=== PATIENT | female | born 1945 ===

== ENCOUNTER 2024-04-29 07:35 | Inpatient (IN) | payer MEDICARE, SELFPAY ==
[2024-04-29] VITALS (14 sets, daily range): BP systolic 87–127; BP diastolic 29–78; PULSE 70–93; RESP 14–38; TEMP 34.5–36.1; O2SAT 95–100; BMI 23.7
--- NOTE | ~2024-04-29 | XR_ITS ---
EXAMINATION: XR CHEST CLINICAL INFORMATION: Hypoxia COMPARISON: None available. TECHNIQUE: Frontal view of the chest was obtained. FINDINGS: Abnormal portable study with hypoventilation and infiltrates or atelectasis at the lung bases. Bandlike atelectasis seen in the right mid to upper lung as well. There is moderate cardiomegaly with mild distention of the pulmonary vessels. There is degenerative change of both shoulders. There are surgical clips in the upper abdomen. XR/XR chest 1V IMPRESSION: Bibasilar infiltrates and/or effusions with apparent congestive changes. A follow-up PA and lateral would be helpful since some of this appearance may be based on technique and hypoventilation. Electronically signed by: Michael Rowan MD 04/29/2024 09:23 AM EDT
--- NOTE | ~2024-04-29 | CT_ITS ---
EXAMINATION: CT HEAD WITHOUT CONTRAST CLINICAL INFORMATION: Changes in mental status and known COMPARISON: None available. TECHNIQUE: Contiguous axial imaging was performed from the skull base to vertex without intravenous administration of contrast. This CT examination was performed using dose optimization techniques as appropriate, variously including the following: *Automated exposure control *Adjustment of mA and/or kV according to patient size (this includes techniques or standardized protocols for targeted exams where dose is matched to indication/reason for exam; i.e. extremities or head) *Use of iterative reconstruction technique DLP: 657 mGy-cm FINDINGS: Moderate calvarial thickening noted but no destructive lesion or fracture. There is mild prominence to the sulci and ventricles with white matter gliosis and involutional change. No evidence for intra or extra-axial fluid collection, hemorrhage, mass, or mass effect. Areas of gliosis also observed in the brainstem. CT/CT head/brain wo IV con IMPRESSION: Chronic findings of involution are observed.No acute findings. Electronically signed by: Michael Rowan MD 04/29/2024 09:16 AM EDT
--- NOTE | 2024-04-29 07:45 | ECG_ITS ---
Test Reason : DYSPNEA Blood Pressure : / mmHG Vent. Rate : 083 BPM Atrial Rate : 083 BPM P-R Int : 150 ms QRS Dur : 084 ms QT Int : 372 ms P-R-T Axes : 031 -27 138 degrees QTc Int : 437 ms Normal sinus rhythm Septal infarct , age undetermined T wave abnormality, consider lateral ischemia Abnormal ECG No previous ECGs available Referred By: Dulce Colvin Electronically Signed By:RHYS CORONADO
--- NOTE | 2024-04-29 07:48 | ED.SOB ---
HPI - SOB/Dyspnea General Chief Complaint: General Medical Stated Complaint: SOB 99% ON 4LPM,FROM [facility] PER EMS Time Seen by Provider: 04/29/24 07:36 Source: patient and EMS Mode of arrival: EMS Limitations: altered mental status History of Present Illness ED Provider: PARVIZ HPI Narrative: 79 yo female from [facility] with PMH of HTN, GERD, DM2, severe dementia, UTI, kidney failure here with c/o being found more altered from baseline - not verbal and not speaking. She was hypoxic with sats in the mid 80s. Responded to 4L NC with EMS. She can only tell me she is not in pain. On CXR reportedly yesterday had bilateral effusions. Patient on arrival wakes to voice and can squeeze hands but overall is edematous and frail appearing. NO fevers reported. I do not see any diuretics on her med list. Patient's MOLST states FULL CODE. MD elicited complaint: shortness of breath Onset (ago): unknown Context: other Timing: constant Severity: moderate Exacerbating factors: lying flat Relieving factors: oxygen Known history of: diabetes Associated symptoms: other (swelling in legs) Treatment prior to arrival: oxygen Related Data Home Medications ?Medication ?Instructions ?Recorded ?Confirmed acetaminophen 325 mg tablet 650 mg PO Q6H PRN Fever Or Pain 04/29/24 04/29/24 bisacodyl 10 mg rectal suppository 10 mg IL DAILY PRN Constipation 04/29/24 04/29/24 buspirone 15 mg tablet 15 mg PO TID 04/29/24 04/29/24 donepezil 5 mg tablet 5 mg PO DAILY@199904/29/24 04/29/24 fesoterodine 8 mg tablet,extended 8 mg PO BEDTIME@199904/29/24 04/29/24 release 24 hr glucagon 1 mg solution for 1 mg subcut Q20M PRN Constipation 04/29/24 04/29/24 injection (Glucagon Emergency Kit) magnesium hydroxide 400 mg/5 mL 30 ml PO DAILY PRN Constipation 04/29/24 04/29/24 oral suspension (Milk of Magnesia) magnesium oxide 400 mg PO BID 04/29/24 04/29/24 montelukast 10 mg tablet 10 mg PO DAILY@199904/29/24 04/29/24 pantoprazole 40 mg tablet,delayed 40 mg PO BID@0630,1630 04/29/24 04/29/24 release sodium phosphates 19 gram-7 118 ml IL DAILY PRN Constipation 04/29/24 04/29/24 gram/118 mL enema (Fleet Enema) sucralfate 1 gram tablet 1 g PO BID 04/29/24 04/29/24 Allergies Allergy/AdvReac Type Severity Reaction Status Date / Time Penicillins Allergy Unknown Unknown Verified 04/29/24 08:09 Review of Systems Review of Systems: ROS unable to be obtained due to altered mental status [facility] Past Medical History Attestation statement: The following information was validated with the patient. Source: old records reviewed Medical History HTN (hypertension) GERD (gastroesophageal reflux disease) Diabetes Dementia UTI (urinary tract infection) Kidney failure Social History Social History (Updated 04/29/24 @ 07:49 by Dulce Colvin DO) Patient Tobacco Use Status: Tobacco use Unknown Advance Directives: Yes Advance Directives on File: Yes Advance Directives Date on File: 04/29/24 Do you have a plan to hurt others: No Plan Physical Exam Vital Signs: Vital Signs: Last Vital Signs Temp 97 F 04/29/24 14:21 Pulse 93 04/29/24 14:21 Resp 25 H 04/29/24 14:21 BP 123/68 04/29/24 14:21 Pulse Ox 95 04/29/24 14:21 O2 Del Method Nasal Cannula 04/29/24 14:21 O2 Flow Rate 3 04/29/24 14:21 FiO2 100 04/29/24 09:24 Oxygen Flow Rate 4 04/29/24 08:08 BMI result Body Mass Index 23.7 Appearance: Somnolent. Wakes to voice, very weak and frail appearing. Not speaking much other than saying yes or no. moderate acute distress. Eyes: Pupils pinpoint ENT: Pharynx dry MM Neck: Normal inspection. Neck supple. CVS: Normal heart rate and rhythm. Pulses normal. Respiratory: moderate respiratory distress - poor respiratory effort low rate shallow breaths. Breath sounds bases diminished with rales Abdomen: Soft and non-tender. Skin: Skin warm and dry. pale skin color. Normal skin turgor. Extremities: 1-2+ bilateral symmetric lower extremity edema. Neuro: yes or no answers. No motor deficit. No sensory deficit. Course Course Course Narrative: no response to narcan respiratory acidosis - I am not sure she can tolerate Bipap daughter Unique is on the way to come see the patient aware of her respiratory status Reevaluation(s) Reevaluation #1: hypothermia sudha nunez ordered 850am IV albumin and lasix ordered Reevaluation #2: patient's MOLST is confusing was signed on 04/16 at [facility] but she shouuld not have been able to sign it with her dementia states full CODE but no IVF or feeding tube. Daughter is here and undecided going back and forth between ventilator and central line currently on Bipap and tolerating. I did try to start central line but daughter wants to wait and see when her son comes to help her decide 920am added on vancomycin given CXR pressure is coming up and she is perking up and agitated will try to diurese once she is improved Reevaluation #3: VBG improving will trial off of bipap 1113am BP still remains up temp is coming up Additional Reevaluation(s): currently doing well off bipap - repeat labs reassuring will admit daughter has made patient DNR/DNI no pressors okay for NIPPV wants fluids and IV antibiotics Medications Administered Discontinued Medications Generic Name Dose Route Start Last Admin Trade Name Rhonda PRN Reason Stop Dose Admin Ceftriaxone Sodium 1 gm/ 50 mls @ 100 mls/hr 04/29/24 07:50 04/29/24 08:54 Sodium Chloride IV 04/29/24 08:19 Infused ONCE ONE Infusion Albumin Human 100 mls @ 133.333 mls/hr 04/29/24 08:30 04/29/24 10:34 Kedbumin 25 % IV 04/29/24 10:14 Infused Q1H PELON Infusion Sodium Chloride 250 mls @ 250 mls/hr 04/29/24 09:18 04/29/24 11:48 Ns IV 04/29/24 10:17 Infused .Q1H ONE Infusion Vancomycin HCl 1,500 mg/ 500 mls @ 333.333 mls/hr 04/29/24 09:36 04/29/24 12:32 Sodium Chloride IV 04/29/24 11:05 Infused ONCE ONE Infusion Calcium Gluconate 2 gm in 100 mls @ 50 mls/hr 04/29/24 11:24 04/29/24 14:21 Calcium Gluconate IV 04/29/24 13:23 Infused ONCE ONE Infusion Naloxone HCl 0.4 mg 04/29/24 08:04 04/29/24 08:07 Naloxone Hcl 0.4 Mg/Ml Vial IVPUSH 04/29/24 08:05 0.4 mg STAT STA Administration Naloxone HCl 0.4 mg 04/29/24 08:27 04/29/24 08:51 Naloxone Hcl 0.4 Mg/Ml Vial IVPUSH 04/29/24 08:28 0.4 mg ONCE ONE Administration Sodium Zirconium Cyclosilicate 5 gm 04/29/24 11:24 04/29/24 12:30 Sodium Zirconium Cyclosilicate 5 Gm Powd.Pack PO 04/29/24 11:25 Not Given ONCE ONE Medical Decision Making Medical Decision Making MDM Narrative: 79 yo female from [facility] with PMH of HTN, GERD, DM2, severe dementia, UTI, kidney failure here with c/o hypoxia, edema, AMS - at this time it is really hard to get much of a history will obtain basic labs, EKG, BNP, CXR, CT head for ICH she is not on thinners, UA - start on empiric ceftriaxone. She may need IV lasix given the edema I do not see diuretics. She has hx of low Na in past will check all of her lytes. Wide differential of toxic/metabolic/infectious encephalopathy in someone who cannot provide history. Pupils are pinpoint but I do not see opiates on the EMR will give one time dose of narcan. Differential Diagnosis Differential Diagnoses: The differential diagnosis associated with the presentation includes CHF, pneumonia, effusions, encephalopathy, UTI Admission/Observation Consideration of admission/observation: Escalation of care including admission/observation considered admit given hypoxia and lab trend Consult Healthcare Provider Management of the patient was discussed with: Hospitalist (will admit) Lab Data MDM Lab Attestation statement: I reviewed the patient's lab results. 04/29/24 08:03 04/29/24 10:32 Labs: Lab Results 04/29/24 04/29/24 04/29/24 Range/Units 07:50 08:03 08:04 WBC 7.7 (4.8-10.8) X10*3/uL RBC 3.98 L (4.20-5.50) X10*6/uL Hgb 11.7 L (12.0-16.0) g/dl Hct 37.9 (37.0-47.0) % MCV 95.2 (80.0-98.0) fL MCH 29.4 (27.0-33.0) pg MCHC 30.9 L (31.0-35.0) g/dl RDW 17.5 H (11.0-16.0) % Plt Count 463 H (160-400) X10*3/uL MPV 9.9 (9.4-12.3) fL Immature Gran % (Auto) 0.4 (0.0-0.4) % Neut % (Auto) 87.4 H (45-73) % Lymph % (Auto) 8.8 L (20-40) % [place] % (Auto) 3.0 (2-11) % Eos % (Auto) 0.1 (0-4) % Baso % (Auto) 0.3 (0-2) % Lymph # (Auto) 0.7 L (1.2-4.9) X10*3/uL [place] # (Auto) 0.2 (0.1-1.2) X10*3/uL Eos # (Auto) 0.0 (0.0-0.4) X10*3/uL Baso # (Auto) 0.0 (0.0-0.2) X10*3/uL Abs Immat Gran (auto) 0.03 (0.00-0.03) X10*3/uL Absolute Neuts (auto) 6.7 (2.0-8.3) x10*3/uL Absolute Nucleated RBC 0.000 (0.0-0.012) X10*3/uL Nucleated RBC % (auto) 0.0 (0.0-0.2) /100WBC PT 9.8 L (11.1-13.3) SEC INR 0.8 L (0.9-1.1) VBG pH (7.32-7.43) VBG pCO2 mmHg VBG pO2 mmHg VBG HCO3 (22-26) mmol/L VBG O2 Saturation % VBG Base Excess mmol/L Sodium (135-145) mmol/L Potassium (3.3-5.1) mmol/L Chloride (96-108) mmol/L Carbon Dioxide (22-29) mmol/L Anion Gap (12-20) BUN (9-16) mg/dL Creatinine (0.5-1.4) mg/dL Estim Creat Clear Calc Estimated GFR POC Glucose 122 H (60-115) mg/dL Random Glucose (60-115) mg/dL Lactic Acid 2.7 H* (0.5-2.0) mmol/L Lactic Acid F/U @ 2Hr (0.5-2.0) mmol/L Lactic Acid F/U @ 4Hr (0.5-2.0) mmol/L Calcium (8.4-10.2) mg/dL Magnesium (1.6-2.6) mg/dL Total Bilirubin (0.0-1.0) mg/dL Direct Bilirubin (0.0-0.5) mg/dL AST (5-31) U/L ALT (0-31) U/L Alkaline Phosphatase (39-117) U/L Troponin I High Sens 115.3 H* (<3.5-17.0) ng/L C-Reactive Protein (< or = 0.50) mg/dL B-Natriuretic Peptide 2443 H (<100) pg/mL Total Protein (6.5-8.0) g/dL Albumin (3.5-5.0) g/dL Lipase (8-78) U/L TSH (0.32-4.0) uIU/mL Urine Color Urine Appearance Urine pH (5.0-9.0) Ur Specific [place] (1.005-1.025) Urine Protein (Neg-Trace) mg/dL Urine Glucose (UA) (Negative) mg/dL Urine Ketones (Negative) mg/dL Urine Blood (Negative) Urine Nitrite (Negative) Ur Leukocyte Esterase (Negative) Urine RBC (0-2) /HPF Urine WBC (0-5) /HPF Ur Squamous Epith Cells (0-2) /HPF Urine Bacteria (None Seen) Hyaline Casts (0-2) /LPF Urine Yeast Influenza Type A (PCR) (Negative) Influenza Type B (PCR) (Negative) RSV RNA Qual (PCR) (Negative) SARS-CoV-2 RNA (RT-PCR) (Negative) 09/18/24 09/18/24 09/18/24 Range/Units 08:12 08:57 10:32 WBC (4.8-10.8) X10*3/uL RBC (4.20-5.50) X10*6/uL Hgb (12.0-16.0) g/dl Hct (37.0-47.0) % MCV (80.0-98.0) fL MCH (27.0-33.0) pg MCHC (31.0-35.0) g/dl RDW (11.0-16.0) % Plt Count (160-400) X10*3/uL MPV (9.4-12.3) fL Immature Gran % (Auto) (0.0-0.4) % Neut % (Auto) (45-73) % Lymph % (Auto) (20-40) % [place] % (Auto) (2-11) % Eos % (Auto) (0-4) % Baso % (Auto) (0-2) % Lymph # (Auto) (1.2-4.9) X10*3/uL [place] # (Auto) (0.1-1.2) X10*3/uL Eos # (Auto) (0.0-0.4) X10*3/uL Baso # (Auto) (0.0-0.2) X10*3/uL Abs Immat Gran (auto) (0.00-0.03) X10*3/uL Absolute Neuts (auto) (2.0-8.3) x10*3/uL Absolute Nucleated RBC (0.0-0.012) X10*3/uL Nucleated RBC % (auto) (0.0-0.2) /100WBC PT (11.1-13.3) SEC INR (0.9-1.1) VBG pH 7.24 L (7.32-7.43) VBG pCO2 68 mmHg VBG pO2 132 mmHg VBG HCO3 29 H (22-26) mmol/L VBG O2 Saturation 100.0 % VBG Base Excess 0.9 mmol/L Sodium 139 (135-145) mmol/L Potassium 5.7 H (3.3-5.1) mmol/L Chloride 106 (96-108) mmol/L Carbon Dioxide 25 (22-29) mmol/L Anion Gap 14 (12-20) BUN 50 H (9-16) mg/dL Creatinine 3.88 H (0.5-1.4) mg/dL Estim Creat Clear Calc 10.4 Estimated GFR 11 POC Glucose (60-115) mg/dL Random Glucose 114 (60-115) mg/dL Lactic Acid (0.5-2.0) mmol/L Lactic Acid F/U @ 2Hr (0.5-2.0) mmol/L Lactic Acid F/U @ 4Hr (0.5-2.0) mmol/L Calcium 9.9 (8.4-10.2) mg/dL Magnesium 2.6 (1.6-2.6) mg/dL Total Bilirubin 0.2 (0.0-1.0) mg/dL Direct Bilirubin < 0.2 (0.0-0.5) mg/dL AST 23 (5-31) U/L ALT 9 (0-31) U/L Alkaline Phosphatase 44 (39-117) U/L Troponin I High Sens (<3.5-17.0) ng/L C-Reactive Protein < 0.10 (< or = 0.50) mg/dL B-Natriuretic Peptide (<100) pg/mL Total Protein 7.0 (6.5-8.0) g/dL Albumin 3.9 (3.5-5.0) g/dL Lipase 16 (8-78) U/L TSH 1.42 (0.32-4.0) uIU/mL Urine Color Yellow Urine Appearance Turbid Urine pH 5.0 (5.0-9.0) Ur Specific [place] 1.020 (1.005-1.025) Urine Protein 300 (3+) H (Neg-Trace) mg/dL Urine Glucose (UA) Negative (Negative) mg/dL Urine Ketones Trace (Negative) mg/dL Urine Blood Moderate (2+) H (Negative) Urine Nitrite Negative (Negative) Ur Leukocyte Esterase Moderate (2+) H (Negative) Urine RBC 0-2 (0-2) /HPF Urine WBC 6-10 (0-5) /HPF Ur Squamous Epith Cells 6-10 (0-2) /HPF Urine Bacteria Trace (None Seen) Hyaline Casts 0-2 (0-2) /LPF Urine Yeast Present Influenza Type A (PCR) (Negative) Influenza Type B (PCR) (Negative) RSV RNA Qual (PCR) (Negative) SARS-CoV-2 RNA (RT-PCR) (Negative) 04/29/24 04/29/24 04/29/24 Range/Units 10:54 11:00 13:13 WBC (4.8-10.8) X10*3/uL RBC (4.20-5.50) X10*6/uL Hgb (12.0-16.0) g/dl Hct (37.0-47.0) % MCV (80.0-98.0) fL MCH (27.0-33.0) pg MCHC (31.0-35.0) g/dl RDW (11.0-16.0) % Plt Count (160-400) X10*3/uL MPV (9.4-12.3) fL Immature Gran % (Auto) (0.0-0.4) % Neut % (Auto) (45-73) % Lymph % (Auto) (20-40) % [place] % (Auto) (2-11) % Eos % (Auto) (0-4) % Baso % (Auto) (0-2) % Lymph # (Auto) (1.2-4.9) X10*3/uL [place] # (Auto) (0.1-1.2) X10*3/uL Eos # (Auto) (0.0-0.4) X10*3/uL Baso # (Auto) (0.0-0.2) X10*3/uL Abs Immat Gran (auto) (0.00-0.03) X10*3/uL Absolute Neuts (auto) (2.0-8.3) x10*3/uL Absolute Nucleated RBC (0.0-0.012) X10*3/uL Nucleated RBC % (auto) (0.0-0.2) /100WBC PT (11.1-13.3) SEC INR (0.9-1.1) VBG pH 7.36 (7.32-7.43) VBG pCO2 47 mmHg VBG pO2 73 mmHg VBG HCO3 27 H (22-26) mmol/L VBG O2 Saturation 99.0 % VBG Base Excess 1.8 mmol/L Sodium (135-145) mmol/L Potassium (3.3-5.1) mmol/L Chloride (96-108) mmol/L Carbon Dioxide (22-29) mmol/L Anion Gap (12-20) BUN (9-16) mg/dL Creatinine (0.5-1.4) mg/dL Estim Creat Clear Calc Estimated GFR POC Glucose (60-115) mg/dL Random Glucose (60-115) mg/dL Lactic Acid (0.5-2.0) mmol/L Lactic Acid F/U @ 2Hr 2.7 H* (0.5-2.0) mmol/L Lactic Acid F/U @ 4Hr 2.4 H* (0.5-2.0) mmol/L Calcium (8.4-10.2) mg/dL Magnesium (1.6-2.6) mg/dL Total Bilirubin (0.0-1.0) mg/dL Direct Bilirubin (0.0-0.5) mg/dL AST (5-31) U/L ALT (0-31) U/L Alkaline Phosphatase (39-117) U/L Troponin I High Sens 86.3 H* (<3.5-17.0) ng/L C-Reactive Protein (< or = 0.50) mg/dL B-Natriuretic Peptide (<100) pg/mL Total Protein (6.5-8.0) g/dL Albumin (3.5-5.0) g/dL Lipase (8-78) U/L TSH (0.32-4.0) uIU/mL Urine Color Urine Appearance Urine pH (5.0-9.0) Ur Specific [place] (1.005-1.025) Urine Protein (Neg-Trace) mg/dL Urine Glucose (UA) (Negative) mg/dL Urine Ketones (Negative) mg/dL Urine Blood (Negative) Urine Nitrite (Negative) Ur Leukocyte Esterase (Negative) Urine RBC (0-2) /HPF Urine WBC (0-5) /HPF Ur Squamous Epith Cells (0-2) /HPF Urine Bacteria (None Seen) Hyaline Casts (0-2) /LPF Urine Yeast Influenza Type A (PCR) NEGATIVE (Negative) Influenza Type B (PCR) NEGATIVE (Negative) RSV RNA Qual (PCR) NEGATIVE (Negative) SARS-CoV-2 RNA (RT-PCR) NEGATIVE (Negative) ABG Data Attestation ABG: I personally reviewed and interpreted this ABG as follows: Interpretation: resp acidosis Independent Interpretation I performed an independent interpretation of an: EKG, Plain X-Ray (bilateral effusions/consolidation) and CT Scan (no ICH) Interpretation: Rate: Rhythm: [place]: Normal P waves. Normal ARABELLA. Normal QRS complex. ST T wave : qTC: prior studies: The study has been interpreted contemporaneously by me. . Radiology Impression Discussion of test interpretation with radiology: I have reviewed the radiologist's reading. Independent Historian Clinical information obtained from an independent historian. History obtained from or confirmed by: EMS External Record Review External record reviewed: Outpatient record Procedures Procedure Narrative Procedure Narrative: bedside ECHO - substernal, apical, subxiphoid RV dilated with poor motion, LV thickened wall and akinetic movements estimated squeeze 40%, no effusion noted Critical Care Time Critical Care Time Critical Care Time: Yes Total Critical Care Time: 90 Attestation: NIPPV, repeat labs, repeat discussions with family about goals of care, review of records, fluid bolus I attest to this time spent taking care of the patient Discharge Plan Discharge Clinical Impression: Acute kidney injury superimposed on chronic kidney disease, Bilateral pleural effusion, Acidosis, lactic, Acute hypoxic on chronic hypercapnic respiratory failure, Elevated troponin, Consolidation lung Patient Disposition: Admitted As Inpatient Print Language: [place] Sepsis Bolus Exclusion Sepsis Bolus Exclusion CHF/Renal Failure This patient met severe sepsis criteria due to the following condition(s):: Hypotension In my clinical judgement the administration of 30 ml/kg of crystalloid would be detrimental to this patient due to the patient's following conditions:: NYHA class III or IV Heart Failure(symptoms with low exertion or rest) and Concern for fluid overload Replace the 30 mls/kg with (Zero amount not acceptable and all fluids for severe sepsis must be given at GREATER than 125 mls/hr) Crystalloids amount given in mls: (rate must be at least 150cc/hr): 250 Colloids amount given in mls:: 200
[2024-04-29] MEDS: Naloxone HCl 0.4 MG/ML VIAL IVPUSH ×2 (08:07→08:51)
[2024-04-29 08:10] LABS: Venous Blood Gas Refer to POC result
[2024-04-29 08:12] LABS: MANUAL DIFF FLAG NO
[2024-04-29 08:13] LABS: Basophils Percent Auto 0.3 % (0-2); Eosinophils Percent Auto 0.1 % (0-4); Hematocrit 37.9 % (37.0-47.0); Hemoglobin 11.7 g/dl (12.0-16.0); Imm Gran Abs Auto 0.03 X10*3/uL (0.00-0.03); Imm Gran Pct Auto 0.4 % (0.0-0.4); Lymphocytes Absolute Auto 0.7 X10*3/uL (1.2-4.9); Lymphocytes Percent Auto 8.8 % (20-40); Mean Corpuscular HGB Conc 30.9 g/dl (31.0-35.0); Mean Corpuscular Hemoglobin 29.4 pg (27.0-33.0); Mean Corpuscular Volume 95.2 fL (80.0-98.0); Mean Platelet Volume 9.9 fL (9.4-12.3); Monocytes Absolute Auto 0.2 X10*3/uL (0.1-1.2); Neutrophils Absolute Auto 6.7 x10*3/uL (2.0-8.3); Neutrophils Percent Auto 87.4 % (45-73); Platelet Count 463 X10*3/uL (160-400); Red Blood Count 3.98 X10*6/uL (4.20-5.50); Red Cell Distribution Width 17.5 % (11.0-16.0); White Blood Count 7.7 X10*3/uL (4.8-10.8)
[2024-04-29 08:14] LABS: Glucose, Whole Blood 122 mg/dL (60-115)
[2024-04-29] MEDS: cefTRIAXone sodium 1 GM in 0.9 % Sodium Chloride 50 ML IV (08:14)
[2024-04-29 08:16] LABS: VBG Base Excess 0.9 mmol/L; VBG HCO3 29 mmol/L (22-26); VBG pCO2 68 mmHg; VBG pH 7.24 (7.32-7.43); VBG pO2 132 mmHg
[2024-04-29 08:25] LABS: INTERNATIONAL NORM RATIO 0.8 (0.9-1.1); Prothrombin Time 9.8 SEC (11.1-13.3)
[2024-04-29 08:29] LABS: Lactic Acid 2.7 mmol/L (0.5-2.0)
[2024-04-29 08:34] LABS: B Type Natriuretic Peptide 2443 pg/mL (<100)
[2024-04-29 08:46] LABS: Troponin-I High Sensitivity 115.3 ng/L (<3.5-17.0)
[2024-04-29] MEDS: Albumin Human 25 % 100 ML 133.33 ML IV ×2 (08:51→09:48)
--- NOTE | 2024-04-29 09:04 | PHA.MEDREC ---
Addendum entered by Brian Ash RPh 04/29/24 09:25: Med rec was reviewed by [facility]. Original Note: Pharmacy Consult ? Medication Reconciliation Pharmacy has completed the medication reconciliation. utilized the list from [facility] to confirm med list.
[2024-04-29 09:08] LABS: Appearance Urine Turbid; Color Urine Yellow; Glucose Urine UA Negative (Negative); Leukocyte Esterase Urine Moderate (2+) (Negative); Nitrite Urine Negative (Negative); UMIC TRIGGER UACC YES; Urine Blood Moderate (2+) (Negative); Urine Ketones Trace mg/dL (Negative); Urine Protein 300 (3+) mg/dL (Neg-Trace)
--- NOTE | 2024-04-29 09:27 | PC.NURSE ---
patient presented this morning from [facility], patient unresponsive, cold, flacid. poc obtained 122, IV access obtained in the right AC#20 after multiple attempts, labs drawn and sent. patient noted to be hypothermic. Initally patient pupils pinpoint and minimally responsive, patient recieved 0.4mg narcan IV per MAR, patient pupils became larger and more responsive after. temp sensing herron placed 16fr with only 10ml output, urine obtained and sent. patient given another dose of 0.4 mg narcan per MAR with minimal to no response. patient placed on barehugger for rewarming measures. patient placed on AVAP at 0910 satting 100%, patient daughter at bedsde, patient noted to be full code.
[2024-04-29 09:39] LABS: Bacteria Urine Trace (None Seen); Hyaline Casts Urine 0-2 /LPF (0-2); RBC Urine 0-2 /HPF (0-2); UACC Culture Trigger YES
[2024-04-29 10:11] LABS: Reflex Lactate? Lactic Acid Added
[2024-04-29] MEDS: 0.9 % Sodium Chloride 250 ML IV (10:13)
[2024-04-29] MEDS: vancomycin HCL 1,500 MG in 0.9 % Sodium Chloride 500 ML 333.33 MG IV (10:34)
--- NOTE | 2024-04-29 10:58 | PC.NURSE ---
patient appears to be resting comfortably, patient is on continued bipap, Vital signs are stable at this time. family at bedside.
[2024-04-29 11:05] LABS: VBG Base Excess 1.8 mmol/L; VBG HCO3 27 mmol/L (22-26); VBG pCO2 47 mmHg; VBG pH 7.36 (7.32-7.43); VBG pO2 73 mmHg
[2024-04-29 11:09] LABS: Venous Blood Gas Refer to POC result
[2024-04-29 11:23] LABS: Alanine Aminotransferase 9 U/L (0-31); Albumin Level 3.9 g/dL (3.5-5.0); Alkaline Phosphatase 44 U/L (39-117); Anion Gap 14 (12-20); Aspartate Amino Transferase 23 U/L (5-31); Bilirubin Direct < 0.2 mg/dL (0.0-0.5); Bilirubin Total 0.2 mg/dL (0.0-1.0); Blood Urea Nitrogen 50 mg/dL (9-16); C Reactive Protein < 0.10 mg/dL (< or = 0.50); Calcium 9.9 mg/dL (8.4-10.2); Carbon Dioxide 25 mmol/L (22-29); Chloride 106 mmol/L (96-108); Creatinine Clr Calc Pharmacy 10.4; Estimated Glomerular Filt Rate 11; Glucose Random 114 mg/dL (60-115); Lipase 16 U/L (8-78); Magnesium 2.6 mg/dL (1.6-2.6); Potassium 5.7 mmol/L (3.3-5.1); Sodium 139 mmol/L (135-145); TSH reflex Free T4 1.42 uIU/mL (0.32-4.0)
[2024-04-29 11:24] LABS: ~Lactic Acid-LAB USE ONLY 2.7 mmol/L (0.5-2.0)
--- NOTE | 2024-04-29 11:46 | PC.NURSE ---
patient vng corrected, patient taken off of AVAP, now on 3lNC. patient vitals at this time stable. patient family at bedside, director external communications from [facility] came to bedside. respiraations equal and unlabored, no signs of acute distress
[2024-04-29 11:49] LABS: Troponin-I High Sensitivity 86.3 ng/L (<3.5-17.0)
[2024-04-29] MEDS: Calcium Gluconate/NaCl,Iso-Osm 2 GM/100 ML PLAST..BAG IV (12:24)
--- NOTE | 2024-04-29 12:33 | PC.NURSE ---
patient resting quietly in ED bed 18. patient respirations equal and unlabored. patient mouth swabbed with water for comfort. patient medicated per OCT. removed bare hugger from patient, covered with warm blankets. patient vital signs at this time stable.
--- NOTE | 2024-04-29 12:41 | P.HPHOSP_ITS ---
History of Present Illness Date of Service: 04/29/24 Attending physician on admission: Adi Salamanca Chief Complaint: SOB Pt is an 79-year-old female with a PMH significant for?severe dementia, HTN, [id number] type 2 diabetes, CKD, and GERD who presents to the ED from [facility] via EMS?altered mental status, lethargy, SOB, and hypoxia. Patient is obtunded at time of interview and exam. HPI obtained from chart and provider review, as well as family/HCP who is at bedside. Daughter reports patient was living with her up to 3 weeks ago when she had weakness and witnessed fall at home. Patient was taken to [facility] for further evaluation where she was found to have elevated creatinine function. Was kept for 6-7 days and then discharged to [facility] for PT/OT approximately 1.5 weeks ago. Initially patient did well and was able to participate in PT/OT activities, was alert and oriented at her baseline and had a good appetite. However, daughter noticed 3 days prior on Saturday that patient appeared more confused, which worsened again when she visited on Saturday. This morning staff at [facility] found patient obtunded, nonverbal, and hypoxic into the mid 80s. Was brought to the ED for further evaluation and found to be but hypothermic, hypoxic, and retaining. Was initially placed on BiPAP in the ED due to VBG showing pH 7.24 and pCO2 of 68. Responded well with repeat VBG showing pH 7.34 with pCO2 47. Daughter denies any previous significant respiratory, cardiac, or renal PMH. In the ED pt was hypothermic as low as 94.1, mildly tachycardic up to 91, tachypneic up to 26, hypotensive as low as 89/29, and hypoxic in the mid 80s. Labs were significant for potassium 5.7, BUN 50, creatinine 3.88, lactic acid 2.7 with repeat 2.7, initial troponin 115.3 with repeat down trending to 86.3, and BNP 2443. No leukocytosis. Hepatic function baseline. TSH WNL. UA positive for moderate leukocyte esterase, wbc's 6-10, trace bacteria, and yeast. CXR showed bibasilar infiltrates and/or effusions with apparent congestive changes. CT?of head showed chronic findings but nothing acute. EKG demonstrated normal sinus rhythm with T-wave inversions in leads I and aVL, but no significant ST elevations or depressions. Pt was treated with calcium gluconate, albumin naloxone, ceftriaxone, and vancomycin. Pt will be admitted to the hospital for treatment and further evaluation of acute hypoxic respiratory failure and acute metabolic encephalopathy in the setting of likely CHF, ELDER, and possible pneumonia. Review of Systems 2 Review of Systems: Unable to obtain due to patient's mentation [facility] Medical History HTN (hypertension) GERD (gastroesophageal reflux disease) Diabetes Dementia UTI (urinary tract infection) Kidney failure Social History (Updated 04/29/24 @ 07:49 by Dulce Colvin DO) Patient Tobacco Use Status: Tobacco use Unknown Advance Directives: Yes Advance Directives on File: Yes Advance Directives Date on File: 04/29/24 Do you have a plan to hurt others: No Plan Meds Allergies Allergy/AdvReac Type Severity Reaction Status Date / Time Penicillins Allergy Unknown Unknown Verified 04/29/24 08:09 Active Medications: Current Medications Calcium Gluconate (Calcium Gluconate) 2 gm in 100 mls @ 50 mls/hr IV ONCE ONE Stop: 04/29/24 13:23 Last Admin: 04/29/24 12:24 Dose: 50 mls/hr Home Medications ?Medication ?Instructions ?Recorded ?Confirmed ?Last Taken ?Type acetaminophen 325 mg tablet 650 mg PO Q6H PRN Fever Or Pain 04/29/24 04/29/24 Unknown History bisacodyl 10 mg rectal suppository 10 mg IA DAILY PRN Constipation 04/29/24 04/29/24 Unknown History buspirone 15 mg tablet 15 mg PO TID 04/29/24 04/29/24 Unknown History donepezil 5 mg tablet 5 mg PO DAILY@199904/29/24 04/29/24 Unknown History fesoterodine 8 mg tablet,extended 8 mg PO BEDTIME@199904/29/24 04/29/24 Unknown History release 24 hr glucagon 1 mg solution for 1 mg subcut Q20M PRN Constipation 04/29/24 04/29/24 Unknown History injection (Glucagon Emergency Kit) magnesium hydroxide 400 mg/5 mL 30 ml PO DAILY PRN Constipation 04/29/24 04/29/24 Unknown History oral suspension (Milk of Magnesia) magnesium oxide 400 mg PO BID 04/29/24 04/29/24 Unknown History montelukast 10 mg tablet 10 mg PO DAILY@199904/29/24 04/29/24 Unknown History pantoprazole 40 mg tablet,delayed 40 mg PO BID@0630,1630 04/29/24 04/29/24 Unknown History release sodium phosphates 19 gram-7 118 ml IA DAILY PRN Constipation 04/29/24 04/29/24 Unknown History gram/118 mL enema (Fleet Enema) sucralfate 1 gram tablet 1 g PO BID 04/29/24 04/29/24 Unknown History Physical Exam 2 Vital Signs and Narrative: Vital Signs: Last Vital Signs Temp 96.6 F L 04/29/24 12:31 Pulse 87 04/29/24 12:31 Resp 22 H 04/29/24 12:31 BP 126/70 04/29/24 12:31 Pulse Ox 100 04/29/24 12:31 O2 Del Method Nasal Cannula 04/29/24 12:31 O2 Flow Rate 3 04/29/24 12:31 FiO2 100 04/29/24 09:24 Oxygen Flow Rate 4 04/29/24 08:08 BMI result Body Mass Index 23.7 General: Obtunded, not following commands, nonverbal, briefly arousable to verbal stimuli. Frail-looking Resp: CTA bilaterally, though pt with increased work of breathing, tachypnic CVS: S1, S2, regular rhythm, +JVD GI: +BS, NT, no distention Skin: Warm, dry Neuro: Motor grossly intact bilaterally Extremities: 2+ right lower extremity edema, 1+ left lower extremity edema Results Labs 04/29/24 08:03 04/29/24 10:32 Labs: Laboratory Results - last 24 hr 04/29/24 04/29/24 04/29/24 07:50 08:03 08:04 MCV 95.2 MCH 29.4 MCHC 30.9 L RDW 17.5 H Plt Count 463 H MPV 9.9 Immature Gran % (Auto) 0.4 Neut % (Auto) 87.4 H Lymph % (Auto) 8.8 L [place] % (Auto) 3.0 Eos % (Auto) 0.1 Baso % (Auto) 0.3 Lymph # (Auto) 0.7 L [place] # (Auto) 0.2 Eos # (Auto) 0.0 Baso # (Auto) 0.0 Abs Immat Gran (auto) 0.03 Absolute Neuts (auto) 6.7 Absolute Nucleated RBC 0.000 Nucleated RBC % (auto) 0.0 PT 9.8 L INR 0.8 L VBG pH VBG pCO2 VBG pO2 VBG HCO3 VBG O2 Saturation VBG Base Excess Anion Gap Estim Creat Clear Calc Estimated GFR POC Glucose 122 H Random Glucose Lactic Acid 2.7 H* Lactic Acid F/U @ 2Hr Calcium Magnesium Total Bilirubin Direct Bilirubin AST ALT Alkaline Phosphatase Troponin I High Sens 115.3 H* C-Reactive Protein B-Natriuretic Peptide 2443 H Total Protein Albumin Lipase TSH Urine Color Urine Appearance Urine pH Ur Specific [place] Urine Protein Urine Glucose (UA) Urine Ketones Urine Blood Urine Nitrite Ur Leukocyte Esterase Urine RBC Urine WBC Ur Squamous Epith Cells Urine Bacteria Hyaline Casts Urine Yeast 04/29/24 04/29/24 04/29/24 08:12 08:57 10:32 MCV MCH MCHC RDW Plt Count MPV Immature Gran % (Auto) Neut % (Auto) Lymph % (Auto) [place] % (Auto) Eos % (Auto) Baso % (Auto) Lymph # (Auto) [place] # (Auto) Eos # (Auto) Baso # (Auto) Abs Immat Gran (auto) Absolute Neuts (auto) Absolute Nucleated RBC Nucleated RBC % (auto) PT INR VBG pH 7.24 L VBG pCO2 68 VBG pO2 132 VBG HCO3 29 H VBG O2 Saturation 100.0 VBG Base Excess 0.9 Anion Gap 14 Estim Creat Clear Calc 10.4 Estimated GFR 11 POC Glucose Random Glucose 114 Lactic Acid Lactic Acid F/U @ 2Hr Calcium 9.9 Magnesium 2.6 Total Bilirubin 0.2 Direct Bilirubin < 0.2 AST 23 ALT 9 Alkaline Phosphatase 44 Troponin I High Sens C-Reactive Protein < 0.10 B-Natriuretic Peptide Total Protein 7.0 Albumin 3.9 Lipase 16 TSH 1.42 Urine Color Yellow Urine Appearance Turbid Urine pH 5.0 Ur Specific [place] 1.020 Urine Protein 300 (3+) H Urine Glucose (UA) Negative Urine Ketones Trace Urine Blood Moderate (2+) H Urine Nitrite Negative Ur Leukocyte Esterase Moderate (2+) H Urine RBC 0-2 Urine WBC 6-10 Ur Squamous Epith Cells 6-10 Urine Bacteria Trace Hyaline Casts 0-2 Urine Yeast Present 04/29/24 04/29/24 10:54 11:00 MCV MCH MCHC RDW Plt Count MPV Immature Gran % (Auto) Neut % (Auto) Lymph % (Auto) [place] % (Auto) Eos % (Auto) Baso % (Auto) Lymph # (Auto) [place] # (Auto) Eos # (Auto) Baso # (Auto) Abs Immat Gran (auto) Absolute Neuts (auto) Absolute Nucleated RBC Nucleated RBC % (auto) PT INR VBG pH 7.36 VBG pCO2 47 VBG pO2 73 VBG HCO3 27 H VBG O2 Saturation 99.0 VBG Base Excess 1.8 Anion Gap Estim Creat Clear Calc Estimated GFR POC Glucose Random Glucose Lactic Acid Lactic Acid F/U @ 2Hr 2.7 H* Calcium Magnesium Total Bilirubin Direct Bilirubin AST ALT Alkaline Phosphatase Troponin I High Sens 86.3 H* C-Reactive Protein B-Natriuretic Peptide Total Protein Albumin Lipase TSH Urine Color Urine Appearance Urine pH Ur Specific [place] Urine Protein Urine Glucose (UA) Urine Ketones Urine Blood Urine Nitrite Ur Leukocyte Esterase Urine RBC Urine WBC Ur Squamous Epith Cells Urine Bacteria Hyaline Casts Urine Yeast Imaging Radiologist's Impressions: Impressions Chest X-Ray 04/29/24 07:45 IMPRESSION: Bibasilar infiltrates and/or effusions with apparent congestive changes. A follow-up PA and lateral would be helpful since some of this appearance may be based on technique and hypoventilation. Electronically signed by: Michael Rwoan MD 04/29/2024 09:23 AM EDT RP Head CT 04/29/24 07:45 IMPRESSION: Chronic findings of involution are observed.No acute findings. Electronically signed by: Michael Rowan MD 04/29/2024 09:16 AM EDT RP Assessment and Plan (1) Acute kidney injury superimposed on chronic kidney disease: Status: Acute Plan Pt is an 79-year-old female with a PMH significant for?severe dementia, HTN, cas-[id number] type 2 diabetes, CKD, and GERD who presents to the ED from [facility] via EMS?altered mental status, lethargy, SOB, and hypoxia. Pt will be admitted to the hospital for treatment and further evaluation of acute hypoxic respiratory failure and acute metabolic encephalopathy in the setting of likely CHF, ELDER, and possible pneumonia. ?CHF Pt with SOB, elevated BNP, pleural effusion and pulmonary edema on CXR, clinically looks fluid overloaded No known significant cardiac history Patient initially hypotensive and given 250mL of IVF If patient's BP holds, will gently diurese with furosemide 20 mg IV daily Follow [place], I/O Daily weights, low-salt diet once no longer NPO Echocardiogram Monitor on telemetry ?Pneumonia with sepsis CXR with question of bibasilar infiltrates Patient meets sepsis criteria: Hypothermic, tachycardic, tachypneic; hypotensive and lactic acid 2.7 Sepsis fluid bolus was excluded due to concern for CHF and pt looking volume overloaded Given 250 mL of IVF and started on broad-spectrum antibiotics in the ED Will treat with ceftriaxone and azithromycin, started 04/29/[address] of chest for better evaluation of infiltrates vs pleural effusions Titrate supplemental O2 Follow cultures Acute hypoxic respiratory failure with hypercapnia Satting in the 80s on RA, initial VBG pH 7.24 with pCO2 68 Patient initially placed on BiPAP in the ED with good response Likely multifactorial: In the setting of CHF and pneumonia Treat as above Titrate supplemental O2 >92, wean as tolerated Acute metabolic encephalopathy Likely multifactorial: In the setting of CHF and pneumonia, ?UTI Treat as above NPO pending swallow evaluation Monitor mentation ELDER on CKD BUN 50 and creatinine 3.88, baseline unknown Possibly cardiorenal in the setting of CHF Treat as above Will get records from [facility] of recent hospitalization Follow BMP Hyperkalemia Patient's potassium 5.7 at time of presentation In the setting of ELDER on CKD Patient given calcium gluconate IV in the ED Follow potassium Elevated troponin Initial troponin 115.3 with repeat 86.3 EKG with possible lateral ischemia Likely type 2 in the setting of increased demand Monitor on telemetry ?UTI UA showing moderate leukocyte esterase, wbc's 6-10, and trace bacteria Patient being treated with ceftriaxone as above Follow urine culture Advanced dementia Continue buspirone, donepezil GERD Continue PPI Full Code Attending:?Dr. Salamanca DVT Prophylaxis: Heparin Pt will require a hospitalization of at least two nights for treatment of?acute hypoxic respiratory failure and acute metabolic encephalopathy in the setting of CHF, ELDER, and possible pneumonia. Patient will require hospital level of care due to need for administration of IV antibiotics, gentle IV digoxin, close monitoring of vitals, labs, mentation, and cardiac function. Quality Stroke Does the patient have a stroke diagnosis?: No VTE Prior VTE?: No VTE Risk Level:: Medical - moderate - high VTE Device Contraindication: Treatment Not Indicated VTE Drug Contraindication: N/A - Med Ordered
[2024-04-29 12:57] LABS: Reflex Lactate? 2 Y
[2024-04-29 13:50] LABS: ~Lactic Acid-LAB USE ONLY 2.4 mmol/L (0.5-2.0)
[2024-04-29 13:56] LABS: Influenza A PCR NEGATIVE (Negative); Influenza B PCR NEGATIVE (Negative); Resp Syncy Virus RNA Qual PCR NEGATIVE (Negative); SARS COV2 PCR INHOUSE NEGATIVE (Negative)
[2024-04-29] MEDS: Azithromycin 500 MG in 0.9 % Sodium Chloride 250 ML 125 MG IV (15:07)
[2024-04-29] MEDS: Heparin Sodium,Porcine 5,000 UNIT/ML VIAL 5000 UNIT SUBCUT (15:07)
[2024-04-29] MEDS: Furosemide 20 MG/2 ML VIAL IVPUSH (15:52)
--- NOTE | 2024-04-29 18:06 | PC.NURSE ---
patient pads changed. patient noted to have 3cm pressure injury noted to coccyx. covered with padded pressure wound dressing. patient opens eyes for name and noxious stimuli. patient family a bedside. patient has had minimal output in herron cath, only 40ml. vital signs stable at this time
--- NOTE | 2024-04-29 19:10 | PC.NURSE ---
this rn assumed care of pt, pt alert but not oriented at this time, respirations even and unlabored. vss.
--- NOTE | 2024-04-29 20:52 | PC.NURSE ---
pt placed in hospital bed for comfort, bed alarm in place. pt noted to have redness to coccyx, coccyx bandage in place.
[2024-04-30] VITALS (7 sets, daily range): BP systolic 0–121; BP diastolic 0–73; PULSE 53–95; RESP 20–40; TEMP 35.7–36.1; O2SAT 74–97
[2024-04-30] MEDS: 0.9 % Sodium Chloride Flush 3 ML SYRINGE IVFLUSH (00:02)
--- NOTE | 2024-04-30 00:09 | PC.NURSE ---
pt noted to be hypothermic at this time, core temp 96.3, aware, bear mayra placed.
[2024-04-30 01:01] LABS: Glucose, Whole Blood 88 mg/dL (60-115)
[2024-04-30] MEDS: Dextrose 5 % and 0.9 % NaCl 1,000 ML 80 ML IVCONT (01:24)
--- NOTE | 2024-04-30 01:46 | PC.NURSE ---
warming fluids administered per provider order at this time. pt noted to desat to 87%, pt placed on oxymax 15L at this time sating 90%. called to bedside, plan for highflow, RT called at this time.
--- NOTE | 2024-04-30 02:02 | PC.NURSE ---
RT at bedside placing pt on highflow, pt sating 94%, 70L
[2024-04-30 02:08] LABS: Glucose, Whole Blood 94 mg/dL (60-115)
--- NOTE | 2024-04-30 07:10 | PM.EVENT ---
Event Note Date of Service: 04/30/24 Event Note: Note Patient seen/examined. No response to verbal/tactile stimuli. No pulse, heart beat, or respirations for one minute. Pupils fixed and dilated. Patient pronounced at 4:49 AM Dauther notified. Time Spent With Patient Time: Total time managing care of this patient today ____ minutes.
--- NOTE | 2024-04-30 07:47 | PC.NURSE ---
Patient admitted from the ED around 032. Patient is unresponsive upon arrival with HR=53, R=28, POX=74% on high flow O2 70 % with 50 l O2. Temp=96.9. BP not able to be detected. Patient is pronounced at [address] Alexander Bryan. Daughter Unique Cohen notified. [facility] contacted. Post mortem care completed [place] [facility] [place]
--- NOTE | 2024-04-30 07:47 | PM.DDS ---
Discharge Sum: Prov Provider Primary care physician: Unknown Physician Consults: 04/29/24 15:34 Consult to Nephrology Routine Consulting Provider: [facility] Reason for consultation: ELDER on CKD 04/29/24 15:35 Consult to Cardiology Routine Consulting Provider: [facility] Reason for consultation: New onset CHF 04/29/24 18:51 Consult to Wound Care Routine Reason for consultation: Coccyx wound Has provider been notified: Yes Discharge Sum: Diag Contributing Factors (1) Acute kidney injury superimposed on chronic kidney disease: Discharge Sum: Summary Date and Time Date of admission: 04/29/24 14:22 Summary Details: 79-year-old female with past medical history of HTN, GERD, DM2, severe dementia, UTI, kidney failure brought in to [place] emergency room due to altered mental status, hypoxia and admitted to [facility] with a diagnosis of acute kidney injury superimposed on chronic kidney disease, hyperkalemia, acute hypoxic on chronic hypercapnic respiratory failure, elevated troponin, consolidation in lungs diagnosed to have severe sepsis due to multi organ failure with elevated creatinine, elevated troponin, acute toxic/metabolic encephalopathy and treated with IV antibiotics, IV Lasix, 30 mL/kg fluids were not administered due to risk of floor overload with concern for class 3/4 CHF, echocardiogram, nephrology and Cardiology consults were obtained, however this morning patient again noted to be hypothermic, hypoxic, unresponsive and peacefully at 04:49 am. Noted to have no pulse, no respiratory rate, pupils fixed and dilated. Daughter was notified. Additional Data Attending physician: Adi Greene MD
--- NOTE | 2024-05-01 15:21 | PM.DS ---
DS: Providers Provider Date of Service: 04/30/24 Date of admission: 04/29/24 14:22 Date of discharge: 04/30/24 Primary care physician: Unknown Physician Consults: 04/29/24 15:34 Consult to Nephrology Routine Consulting Provider: [facility] Reason for consultation: ELDER on CKD 04/29/24 15:35 Consult to Cardiology Routine Consulting Provider: [facility] Reason for consultation: New onset CHF 04/29/24 18:51 Consult to Wound Care Routine Reason for consultation: Coccyx wound Has provider been notified: Yes DS: Diagnosis Discharge Diagnosis (1) Acute kidney injury superimposed on chronic kidney disease: Status: Acute DS: Summary Hospital Course Hospital Course: Details: 79-year-old female with past medical history of HTN, GERD, DM2, severe dementia, UTI, kidney failure brought in to [place] emergency room due to altered mental status, hypoxia and admitted to [facility] with a diagnosis of acute kidney injury superimposed on chronic kidney disease, hyperkalemia, acute hypoxic on chronic hypercapnic respiratory failure, elevated troponin, consolidation in lungs diagnosed to have severe sepsis due to multi organ failure with elevated creatinine, elevated troponin, acute toxic/metabolic encephalopathy and treated with IV antibiotics, IV Lasix, 30 mL/kg fluids were not administered due to risk of floor overload with concern for class 3/4 CHF, echocardiogram, nephrology and Cardiology consults were obtained, however this morning patient again noted to be hypothermic, hypoxic, unresponsive and peacefully at 04:49 am. Noted to have no pulse, no respiratory rate, pupils fixed and dilated. Daughter was notified. Date of service Cause of a cute hypoxic/hypercapnic respiratory failure Severe sepsis due to pneumonia Acute toxic metabolic encephalopathy Time Attestation Discharge Coordination Time (in mins): 34 Quality: Safe Use of Opioids Does Pt have an Active Cancer Diagnosis on the Problem List?: No Quality: Stroke Does the patient have a stroke diagnosis?: No Physical Exam Vital Signs: Vital Signs: Last Vital Signs Temp 96.9 F 04/30/24 04:00 Pulse 53 04/30/24 04:00 Resp 28 H 04/30/24 04:00 BP 0/0 L 04/30/24 04:00 Pulse Ox 74 L 04/30/24 04:00 O2 Del Method High Flow Nasal C annula 04/30/24 04:00 O2 Flow Rate 70 04/30/24 02:03 FiO2 100 04/29/24 09:24 Oxygen Flow Rate 4 04/29/24 08:08 BMI result Body Mass Index 23.7 DS: Data Data Completed and Pending Labs on day of discharge: Preliminary micro results at discharge 04/29/24 08:03 Blood Culture - Preliminary Blood - Venous No growth after 48 hours. 04/29/24 08:03 Blood Culture - Preliminary Blood - Venous No growth after 48 hours. Discharge Plan Discharge Date/Time: 04/30/24 06:00 Patient Disposition: Discharge Diagnosis: Acute hypoxic and hypercapnic respiratory failure Discharge Medications: No Action acetaminophen 325 mg Tablet 650 mg PO Q6H MDD 3 gm /24 h PRN (Reason: Fever Or Pain) donepezil 5 mg tablet 5 mg PO DAILY@1999 sucralfate 1 gram tablet 1 g PO BID magnesium hydroxide [Milk of Magnesia] 400 mg/5 mL Suspension 30 ml PO DAILY PRN (Reason: Constipation) Rx Instructions: If no BM in 3 days bisacodyl 10 mg Suppository 10 mg SD DAILY PRN (Reason: Constipation) Rx Instructions: If M.O.M not effective pantoprazole 40 mg tablet,delayed release (DR/EC) 40 mg PO BID@0630,1630 Fleet Enema 19-7 gram/118 mL Enema 118 ml SD DAILY PRN (Reason: Constipation) Rx Instructions: When Ducolax supp. not effective montelukast 10 mg tablet 10 mg PO DAILY@1999 Glucagon Emergency Kit (human) 1 mg Recon Soln 1 mg SUBCUT Q20M PRN (Reason: Constipation) Rx Instructions: until target blood sugar attained buspirone 15 mg tablet 15 mg PO TID fesoterodine 8 mg tablet extended release 24 hr 8 mg PO BEDTIME@1999 magnesium oxide 400 mg magnesium Tablet 400 mg PO BID Print Language: [place] Discharge Date/Time: 04/30/24 07:30
== END 2024-04-30 07:30 | disposition expired | DRG 871 ==
LOC: HO.ED 11:47 → HO.EDOVER 14:51 → HO.IMC 04-30 01:43
PROVIDERS: Admitting Provider Student in an Organized Health Care Education/Training Program; Emergency Provider Emergency Medicine; Visit Provider Hospitalist
DX: A41.9 Sepsis, unspecified organism (principal); G93.41 Metabolic encephalopathy; J96.21 Acute and chronic respiratory failure with hypoxia; J96.22 Acute and chronic respiratory failure with hypercapnia; J18.9 Pneumonia, unspecified organism; N17.9 Acute kidney failure, unspecified; I13.0 Hypertensive heart and chronic kidney disease with heart failure and stage 1 through stage 4 chronic kidney disease, or unspecified chronic kidney disease; N39.0 Urinary tract infection, site not specified; R65.20 Severe sepsis without septic shock; E87.5 Hyperkalemia; N18.9 Chronic kidney disease, unspecified; E11.22 Type 2 diabetes mellitus with diabetic chronic kidney disease; K21.9 Gastro-esophageal reflux disease without esophagitis; I50.9 Heart failure, unspecified; F03.C0 Unspecified dementia, severe, without behavioral disturbance, psychotic disturbance, mood disturbance, and anxiety; Z20.822 Contact with and (suspected) exposure to COVID-19; Z79.899 Other long term (current) drug therapy
CPT/HCPCS: 0241U; 36415; 70450; 71045; 80048; 80076; 81001; 82803; 82947; 83605; 83690; 83735; 83880; 84443; 84484; 85025; 85610; 86140; 87040; 87086; 93005; 99285; J0456; J0613; J0696; J1644; J1940; J2310; J3371; P9047

== ENCOUNTER → 2024-04-29 14:22 | Outpatient (BNV) | payer MEDICARE, SELFPAY | PROVIDERS: Admitting Provider Student in an Organized Health Care Education/Training Program; Emergency Provider Emergency Medicine; Visit Provider Internal Medicine | DX: N17.9 Acute kidney failure, unspecified (principal); N18.9 Chronic kidney disease, unspecified; J96.02 Acute respiratory failure with hypercapnia; G93.41 Metabolic encephalopathy | CPT/HCPCS: 99223; 99239; 99499 ==